=== PATIENT | male | born 1995 | race Caucasian/White ===

== ENCOUNTER 2017-07-17 22:37 | Emergency (ER) | payer OTHER, SELFPAY ==
[2017-07-17 22:37] VITALS: BP 133/84; PULSE 64; RESP 16; TEMP 36.6; O2SAT 99; BMI 19.5
--- NOTE | 2017-07-17 23:17 | ED.VISSUMM ---
- ER Visit Summary Date of Service: 07/17/17 Chief Complaint: [] Anxiety History of Present Illness: The patient is a 22 M [] complaining of the worst panic attack of his life. Reports dealing with some personal stressful issues before the full onset of panic attack lasting approximately an hour. He reports the panic attacks have never lasted this long. Does report a previous history of panic attacks. Reports he is currently on no medications. Does report seeing a counselor however has not seen a psychiatrist. He is on no medications. He is here because he would like to get started on some medications for my anxiety. He is calm and conversational upon my entry into the room and during history and physical examination. Patient denies suicidal or homicidal ideation. Physical Examination: [] Afebrile, vital signs stable. 22-year-old male no acute distress. Cardiovascular exam is regular rate and rhythm. Lungs clear to auscultation. Abdomen is soft and nontender. Test Results: [] None. Emergency Department Course and Treatment: [] Patient was given Vistaril 50 mg orally. His mother is at the bedside. Patient denies homicidal or suicidal ideation. He reports it is relatively easy to get into his primary care physician. I encouraged him to follow-up with his primary care physician to get referral to a psychiatrist. He will be given a prescription for Vistaril for home. His mother reports she will hold onto that prescription and provided medication as needed. Patient and patient's mother amenable to discharge and close follow-up. Treatment Plan: [] Follow-up with PCP for psychiatric referral. Outpatient treatment with Vistaril. Disposition: [] Discharge, stable. Impression: [] Panic attack This note was generated with [employer] dictation software. It may contain incorrect words, spelling, and punctuation that were not noted in review of the chart prior to signing ED Disposition - Plan for ED Patient: Chief Complaint: Anxiety Referrals: Jason Temple MD [Primary Care Provider] -
--- NOTE | 2017-07-17 23:20 | ED.DCSUM_ITS ---
- ER Visit Summary Date of Service: 07/17/17 Chief Complaint: [] Anxiety History of Present Illness: The patient is a 22 M [] complaining of the worst panic attack of his life. Reports dealing with some personal stressful issues before the full onset of panic attack lasting approximately an hour. He reports the panic attacks have never lasted this long. Does report a previous history of panic attacks. Reports he is currently on no medications. Does report seeing a counselor however has not seen a psychiatrist. He is on no medications. He is here because he would like to get started on some medications for my anxiety. He is calm and conversational upon my entry into the room and during history and physical examination. Patient denies suicidal or homicidal ideation. Physical Examination: [] Afebrile, vital signs stable. 22-year-old male no acute distress. Cardiovascular exam is regular rate and rhythm. Lungs clear to auscultation. Abdomen is soft and nontender. Test Results: [] None. Emergency Department Course and Treatment: [] Patient was given Vistaril 50 mg orally. His mother is at the bedside. Patient denies homicidal or suicidal ideation. He reports it is relatively easy to get into his primary care physician. I encouraged him to follow-up with his primary care physician to get referral to a psychiatrist. He will be given a prescription for Vistaril for home. His mother reports she will hold onto that prescription and provided medication as needed. Patient and patient' s mother amenable to discharge and close follow-up. Treatment Plan: [] Follow-up with PCP for psychiatric referral. Outpatient treatment with Vistaril. Disposition: [] Discharge, stable. Impression: [] Panic attack This note was generated with [employer] dictation software. It may contain incorrect words, spelling, and punctuation that were not noted in review of the chart prior to signing ED Disposition - Plan for ED Patient: Chief Complaint: Anxiety Referrals: Jason Temple MD [Primary Care Provider] -
--- NOTE | 2017-07-17 23:20 | ED.DEP ---
ED Disposition - Plan for ED Patient: Disposition: Home or Assisted Living Chief Complaint: Anxiety Instructions: ED Panic Attack Prescriptions: Hydroxyzine Pamoate [Vistaril] 50 mg PO BID PRN PRN #20 cap PRN Reason: Anxiety Referrals: Jason Temple MD [Primary Care Provider] -
[2017-07-17] MEDS: hydrOXYzine PAM 25 MG Capsule 50 MG PO (23:28)
[2017-07-17 23:43] VITALS: PULSE 76; RESP 16; O2SAT 98
== END 2017-07-17 23:43 | disposition home or self-care (01) ==
PROVIDERS: Emergency Provider Emergency Medicine; Family Provider Family Medicine; PCP Family Medicine
DX: F41.0 Panic disorder [episodic paroxysmal anxiety] (principal); Z72.0 Tobacco use
CPT/HCPCS: 99283

== ENCOUNTER → 2017-07-19 08:37 | Outpatient (CLI) | payer OTHER, SELFPAY ==
[2017-07-19 10:57] LABS: Thyroid Stim Hormone (TSH) 1.43 uIU/mL (0.358-3.74)
== END ==
LOC: MFPLAB 08:38
PROVIDERS: Family Medicine; Family Provider Family Medicine; PCP Family Medicine; Visit Provider Family Medicine
DX: F41.9 Anxiety disorder, unspecified (principal)
CPT/HCPCS: 36415; 84443

== ENCOUNTER → 2023-09-20 | Outpatient (CLI) | payer MEDICAID, SELFPAY ==
[2023-09-20 12:56] LABS: Anion Gap 8 (5-15); BUN 9 mg/dL (7-18); BUN/Creat Ratio 9.1 RATIO (10-20); Calcium,Total 9.8 mg/dL (8.5-10.1); Chloride 106 mmol/L (98-107); Creatinine, Serum 0.99 mg/dL (0.70-1.30); EST Glomerular Filtration Rate 96 mL/min (>60); Est Glom Filt Rate - Afr Amer 116 mL/min (>60); Glucose 94 mg/dL (74-106); Potassium 4.1 mmol/L (3.5-5.1); Sodium Level 137 mmol/L (136-145)
== END | disposition home or self-care (01) ==
LOC: MFPLAB 10:24
PROVIDERS: PCP Family Medicine; Visit Provider Nurse Practitioner Family
DX: I10 Essential (primary) hypertension (principal)
CPT/HCPCS: 36415; 80048